=== PATIENT | male | born 1955 | race Caucasian/White ===

== ENCOUNTER → 2016-04-17 | Outpatient (CLI) | payer BC, OTHER ==
--- NOTE | 2016-04-17 18:15 | HKNOTE ---
DATE OF SERVICE: 04/17/2016 MAIN COMPLAINT: Pain in the left knee. HISTORY OF MAIN COMPLAINT: Patient is a 61-year-old male, has previously seen me with pain in his r ight knee. He was seen on 01/08/2016. He was diagnosed as having moderate degenerative osteoarthri tis of the right knee with possible internal derangement. He was referred for an MRI scan of the right knee, which was reported as showing "subtle" oblique te ar of the posterior horn of the lateral meniscus. Focal deep chondral cleft along the lateral reynolds lar facet. Small joint effusion. Patient states that his knee pain in the right knee settled down to a point where he did not even fe el like coming in to talk to me about the result of the MRI scan that he had. He now complains of pain in his left knee. This pain had a gradual onset. There is no history of i njury to the knee. He does, however, state that even as a child, the left knee would "pop out of pl tete." No diagnosis was ever made. Over the past 3 to 6 months, patient has had gradually increasin g pain in the right knee. The pain was "quite bad 3 weeks ago." Today, he states he is very much b jakob than he was before. The pain is described as being moderate and is aggravated by walking, markel ghtbearing, stair climbing, but most especially by going down stairs. Patient has no rest pain and no night pain. He takes Advil, and that helps a great deal. He does not have any problems with his lower back. On a flat and level surface, he can walk 1 to 2 miles if he needs to. The patient has not done anything since this past Thursday because of the pain in the knee, which has now settled d own. The knee does not swell, does not lock, and does not feel unstable. He has not noted any swelling. He sometimes limps when the pain is "particularly bad." He can clip his toenails and tie his shoela silverio. SPORTING ACTIVITIES: Golf. He normally works out with a personal fitness trainer 3 times a week. He is no longer a ble to do that. PAST ORTHOPEDIC HISTORY: Shoulder surgery [address] Edinson Jeffrey at the [facility]. Patient has had cortisone injections in the past for . ALCOHOL INTAKE: Minimal. OTHER JOINT PROBLEMS: None. BLOOD TESTS FOR ARTHRITIS: None. PRIOR INJURIES TO HIPS OR KNEES: None. 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 PHYSICAL EXAMINATION: GENERAL: Patient is a fit-looking and youthful 61-year-old male. VITAL SIGNS: Height 5 feet 9 inches, weight 225 pounds. Blood pressure 115/70, temperature 98.8. GAIT: The patient's gait is normal. He walks without a walking aid. HIPS: Both hips have a full range of motion without pain. LEFT KNEE: The left knee shows normal alignment. Active and passive extension is 0 degrees. Active and passive flexion is 135 degrees. The medial and lateral collateral ligaments and cruciate ligamen ts are intact. Duarte test is negative. There is no effusion, tenderness, scarring, crepitus, or cy sts. The patella tracks normally. There is no tenderness on the articular surface of the patella or in the patellar groove. The Q angle is normal. 1+ effusion, marked tenderness over the posterior me dial joint line. Pain on hyperextension of the knee. Flexion is full and complete. IMAGING: Plain x-rays of the left knee were reviewed. These show some narrowing of the medial join t space and the patellofemoral joint. DISCUSSION: Patient is a 60-year-old male with slow onset knee pain with some swelling, no instabil ity, and no locking. MANAGEMENT: The patient is being sent for an MRI scan of the left knee, and he will be seen again a s necessary for further evaluation and treatment. Dictated By: KEMAL SALDANA/BRADLEY Conf#: [id number] DID#: [id number]
== END | disposition home or self-care (01) ==
LOC: HKI 15:36
DX: M25.562 Pain in left knee (principal); M17.11 Unilateral primary osteoarthritis, right knee
CPT/HCPCS: G0463

== ENCOUNTER → 2016-05-06 | Outpatient (CLI) | payer OTHER ==
--- NOTE | 2016-05-07 07:30 | HKNOTE ---
DATE OF SERVICE: 05/06/2016 Patient comes in with MRI scan for review. The MRI obtained on 05/01/[address] Sae Elias as showing "fibrillation grade 2 seen alterations affecting the posterior horn of the me dial meniscus with no well-defined meniscal tear. Focal moderate to severe chondral loss affecting the anteromedial tibial plateau with associated subchondral bone marrow edema due to discrete osteoc hondral fracture. 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 Prominent laterally ." The actual MRI disk was reviewed with the patient. He was shown the areas that are deficient in art icular cartilage. MANAGEMENT: 1. The patient is being sent for a review of his left knee with no discrete osteochondral fra cture. Moderate to severe chondromalacia of the patella. 2. The actual MRI scan pictures were reviewed with the patient and he is given a copy of the MRI re port and he is advised that he essentially has arthritis in the knee. There is no need for an opera tion of any kind at this stage. He is advised that osteoarthritis in the knee will gradually become worse. Under sterile conditions, given injection of 2 mL of Kenalog and 6 mL of 2% lidocaine into the left knee. We can repeat these injections every 3 months if it pleases him. No more frequently than felicia ry 3 months. Patient is advised that he will eventually need a knee replacement. Dictated By: KEMAL SALDANA/NTS Conf#: [id number] DID#: [id number]
== END | disposition home or self-care (01) ==
LOC: HKI 15:35
DX: M25.562 Pain in left knee (principal); M22.42 Chondromalacia patellae, left knee
CPT/HCPCS: 20610; J3301

== ENCOUNTER → 2016-08-14 | Outpatient (CLI) | payer OTHER ==
--- NOTE | 2016-09-12 07:24 | HKNOTE ---
DATE OF SERVICE: 08/14/2016 MAIN COMPLAINT: Pain in the left knee. INTERVAL HISTORY: The patient has degenerative osteoarthritis of the left knee. I last saw him on 05/06/2016. At that time, I reviewed his MRI and he got an injection of cortisone into the knee. The cortisone had given him marked relief since that time. He requests a repeat cortisone injection. PHYSICAL EXAMINATION: LEFT KNEE: Physical exam of the left knee - no change since the last visit. VITAL SIGNS: Temperature 98.1, blood pressure 125/70. MANAGEMENT: Under sterile conditions, I gave an injection of 2 mL of Kenalog and 6 mL of 2% Lidocaine into the knee, and he will be seen again for further evaluation and treatment. Dictated By: Sagar Wilks MD /reina/veronica /Document#: [id number]
== END | disposition home or self-care (01) ==
LOC: HKI 15:35
DX: M17.12 Unilateral primary osteoarthritis, left knee (principal)
CPT/HCPCS: 20610; G0463